=== PATIENT | male | born 1935 | race Caucasian/White ===

== ENCOUNTER → 2016-08-16 | Outpatient (CLI) | payer OTHER ==
[~2016-08-16] MED LIST: ACET-1311 PO; ASPCH81X PO; BISA10SU38 PR; CARV6.25 PO; CHOL2000 PO; CLON1TAB3 PO; CYAN100020 PO; DIVA125T18 PO; FURO80TA63 PO; HYDR-5688 PO; LISI-789 PO; MAGN400T6 PO; MAGNSUS5 PO; POTA-327 PO; PRAV20TA PO; PREG1CAP36 PO; QUET5TAB PO; RANI150T3 PO; RXC/5 PO; RXC5 PO; SENN-65 PO; SODIENE PR; SRQ25 PO; TAMS0.4C38 PO
[2016-08-16 14:20] LABS: URINE APPEARANCE CLEAR (CLEAR); URINE BILIRUBIN NEG (NEG); URINE COLOR YELLOW; URINE NITRITE POS (NEG); URINE PH 7.5 (4.5-7.5); URINE SPECIFIC GRAVITY 1.005 (1.000-1.030); UROBILINOGEN NEG (NEG)
[2016-08-16 14:26] LABS: MANUAL MICROSCOPIC REQUIRED? NO; REVIEW REQ? NO
== END ==
LOC: C.LABCC 12:50
PROVIDERS: ATTEND Internal Medicine
DX: R41.82 Altered mental status, unspecified (principal)

== ENCOUNTER → 2016-08-17 | Outpatient (CLI) | payer OTHER ==
[2016-08-17 08:44] LABS: BASO % 0.5 %; BASO ABS # 0.03 K/uL (0-0.2); COMPLETE YES; EOS % 5.4 %; HEMATOCRIT 38.8 % (42-52); IG% 0.3 %; LYMPH % 22.9 %; LYMPH ABS # 1.47 K/uL (1.2-3.4); MEAN CELL VOLUME 87.4 fL (80-100); MEAN CORPUSCULAR HEMOGLOBIN 27.9 pg (25-34); MEAN PLATELET VOLUME 10.6 fL (7.4-10.4); MONO % 12.6 %; NEUT % 58.3 %; PLATELET COUNT 212 K/uL (130-400); RED BLOOD COUNT 4.44 M/uL (4.7-6.1); WHITE BLOOD COUNT 6.43 K/uL (4.8-10.8)
[2016-08-17 08:53] LABS: BLOOD UREA NITROGEN 14 mg/dl (7-18); BUN/CREATININE RATIO 13.6 (10-20); CALCIUM 8.7 mg/dl (8.5-10.1); CARBON DIOXIDE 33 mmol/L (21-32); CHLORIDE 101 mmol/L (98-107); GLUCOSE 100 mg/dl (70-99); POTASSIUM 4.3 mmol/L (3.5-5.1); SODIUM 141 mmol/L (136-145)
== END ==
LOC: C.LABCC 08:14
PROVIDERS: ATTEND Internal Medicine
DX: R53.83 Other fatigue (principal)

== ENCOUNTER → 2016-10-07 | Outpatient (CLI) | payer OTHER ==
[2016-10-07 08:55] LABS: ESTIMATED AVERAGE GLUCOSE 128 mg/dl; HA1C FLAG Normal (Normal)
== END ==
LOC: C.LABCC 08:12
PROVIDERS: ATTEND Internal Medicine
DX: E11.9 Type 2 diabetes mellitus without complications (principal)

== ENCOUNTER → 2016-11-11 | Outpatient (CLI) | payer OTHER ==
[2016-11-12 01:43] LABS: URINE APPEARANCE CLEAR (CLEAR); URINE BILIRUBIN NEG (NEG); URINE COLOR YELLOW; URINE NITRITE POS (NEG); URINE SPECIFIC GRAVITY 1.013 (1.000-1.030); UROBILINOGEN NEG (NEG)
[2016-11-12 01:48] LABS: MANUAL MICROSCOPIC REQUIRED? YES; REVIEW REQ? NO
[2016-11-12 02:00] LABS: URINE BACTERIA 2+ (NEG); URINE RBC 0-4 /hpf (0-4)
== END ==
LOC: C.LABCC 09:46
PROVIDERS: ATTEND Internal Medicine
DX: R45.1 Restlessness and agitation (principal); F41.9 Anxiety disorder, unspecified; R35.0 Frequency of micturition

== ENCOUNTER → 2016-12-08 | Outpatient (CLI) | payer OTHER ==
[2016-12-09 01:36] LABS: URINE APPEARANCE CLEAR (CLEAR); URINE BILIRUBIN NEG (NEG); URINE COLOR YELLOW; URINE NITRITE NEG (NEG); URINE SPECIFIC GRAVITY 1.013 (1.000-1.030); UROBILINOGEN NEG (NEG)
[2016-12-09 01:41] LABS: MANUAL MICROSCOPIC REQUIRED? NO; REVIEW REQ? NO
== END ==
LOC: C.LABCC 11:33
PROVIDERS: ATTEND Internal Medicine
DX: R41.82 Altered mental status, unspecified (principal); R45.1 Restlessness and agitation

== ENCOUNTER → 2017-01-07 | Outpatient (CLI) | payer OTHER ==
[2017-01-07 12:13] LABS: ESTIMATED AVERAGE GLUCOSE 131 mg/dl; HA1C FLAG Normal (Normal)
== END ==
LOC: C.LABCC 07:57
PROVIDERS: ATTEND Internal Medicine
DX: E11.9 Type 2 diabetes mellitus without complications (principal)

== ENCOUNTER → 2017-02-17 | Outpatient (CLI) | payer OTHER ==
--- NOTE | 2017-02-17 10:22 | DIAGNOSTIC IMAGING REPORT ---
(RENAL)RETROPERITON COMP HISTORY: December ejection fraction N39.0 UTI (urinary tract infection)C67.9 Bladder cancer latex COMPARISON: None. FINDINGS: Right kidney: Maximum dimension 10.6 cm. No evidence for hydronephrosis. Normal corticomedullary differentiation and cortical thickness. Left kidney: Maximum dimension 9.9 cm. No evidence for hydronephrosis. Normal corticomedullary differentiation and cortical thickness. Bladder: Subtle bladder wall thickening posterior bladder wall. Given patient history cystoscopy is suggested IMPRESSION: Normal renal ultrasound. Possible subtle bladder wall thickening posteriorly. Cystoscopy is suggested as follow-up. The above report was generated using voice recognition software. It may contain grammatical, syntax or spelling errors. Electronically signed by: Augustine Smalls M.D. 02/17/2017 10:21 AM Dictated Date/Time: 02/17/2017 10:19 AM
== END ==
LOC: C.ULTR 09:31
PROVIDERS: ATTEND Urology
DX: C67.9 Malignant neoplasm of bladder, unspecified (principal); N39.0 Urinary tract infection, site not specified; R93.49 Abnormal radiologic findings on diagnostic imaging of other urinary organs

== ENCOUNTER → 2017-07-18 | Outpatient (CLI) | payer OTHER ==
[2017-07-18 11:43] LABS: BASO % 0.4 %; BASO ABS # 0.03 K/uL (0-0.2); EOS % 4.4 %; EOS ABS # 0.34 K/uL (0-0.5); HEMATOCRIT 37.1 % (42-52); HEMOGLOBIN 11.8 g/dL (14.0-18.0); IG# 0.02 K/uL (0.00-0.02); MEAN CELL VOLUME 86.9 fL (80-100); MEAN CORPUSCULAR HEMOGLOBIN 27.6 pg (25-34); MEAN CORPUSCULAR HGB CONC 31.8 g/dl (32-36); MEAN PLATELET VOLUME 10.9 fL (7.4-10.4); MONO % 9.6 %; MONO ABS # 0.74 K/uL (0.11-0.59); NEUT % 72.3 %; NEUT ABS # 5.58 K/uL (1.4-6.5); PLATELET COUNT 265 K/uL (130-400); RED CELL DISTRIBUTION WIDTH CV 15.3 % (11.5-14.5); RED CELL DISTRIBUTION WIDTH SD 48.9 fL (36.4-46.3); WHITE BLOOD COUNT 7.71 K/uL (4.8-10.8)
[2017-07-18 11:59] LABS: HEMOGLOBIN A1C 6.3 % (4.5-5.6)
[2017-07-18 12:01] LABS: ALBUMIN 3.1 gm/dl (3.4-5.0); ALT/SGPT 20 U/L (12-78); AST/SGOT 12 U/L (15-37); BLOOD UREA NITROGEN 12 mg/dl (7-18); CALCIUM 8.9 mg/dl (8.5-10.1); CARBON DIOXIDE 34 mmol/L (21-32); CREATININE 1.07 mg/dl (0.60-1.40); GLUCOSE 95 mg/dl (70-99); SODIUM 136 mmol/L (136-145)
[2017-07-18 12:14] LABS: ALKALINE PHOSPHATASE 111 U/L (45-117); TOTAL PROTEIN 7.4 gm/dl (6.4-8.2)
== END ==
LOC: C.LABCC 09:59
PROVIDERS: ATTEND Internal Medicine
DX: F01.50 Vascular dementia, unspecified severity, without behavioral disturbance, psychotic disturbance, mood disturbance, and anxiety (principal); E11.9 Type 2 diabetes mellitus without complications; N18.9 Chronic kidney disease, unspecified

== ENCOUNTER → 2017-09-14 | Outpatient (CLI) | payer OTHER ==
[2017-09-14 11:06] LABS: BLOOD UREA NITROGEN 17 mg/dl (7-18); CALCIUM 8.6 mg/dl (8.5-10.1); CARBON DIOXIDE 36 mmol/L (21-32); CREATININE 1.17 mg/dl (0.60-1.40); GLUCOSE 91 mg/dl (70-99); POTASSIUM 4.1 mmol/L (3.5-5.1); SODIUM 139 mmol/L (136-145)
== END ==
LOC: C.LABCC 09:51
PROVIDERS: ATTEND Internal Medicine
DX: I10 Essential (primary) hypertension (principal)

== ENCOUNTER 2017-10-07 14:02 | Emergency (ER) | payer OTHER ==
[~2017-10-07] VITALS: Ht 175.3 cm; Wt 120.9 kg
[2017-10-07 14:11] VITALS: TEMP 37.1; Ht 175.3 cm; Wt 120.9 kg
[2017-10-07 14:22] VITALS: O2SAT 92
--- NOTE | 2017-10-07 14:32 | EMERGENCY ROOM VISIT NOTE ---
History Report prepared by [place]: Carmelina Victoria Under the Supervision of: Dr. Yobany Saul M.D. 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 He states that for the past couple of years he has had persistent chest pain that feels like "hiccups." He reports that he came in to the ED today because he coughed up blood and white mucus and was having worsening chest pain and SOB. He denies having chest pain when he does not cough. He notes he has had a fever and SOB but denies any nausea, vomiting, or urinary symptoms. He wears oxygen at night. The patient lives at [facility] and notes he lives alone. 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 A total of 10 systems reviewed and were otherwise negative. Past Medical & Surgical Medical Problems: (1) ambulatory dysfunction (2) Chr Ischemic Hrt Dis Nec (3) Coronary artery disease (4) Diabetic autonomic neuropathy (5) Diastolic heart failure (6) Hypertensive disorder, systemic arterial (7) Irritable Bowel Syndrome (8) Peripheral vascular disease (9) Psychosis Nos (10) Systolic heart failure Old medical records were reviewed. Nurse's notes were reviewed and I agree with. Family History Family history omitted secondary to the patient's age Social History Smoking Status: Never Smoker Alcohol Use: none Drug Use: none Marital Status: Housing Status: assisted living Occupation Status: retired Current/Historical Medications Scheduled Alum & Mag Hydrox-Simethicone (Antacid), 10 ML PO Q4H Aspirin (Aspirin Chewable), 81 MG PO QAM Azithromycin (Zithromax Z-Jose), 0 PO UD Cyanocobalamin (Vitamin B12), 1,000 MCG PO DAILY Furosemide (Lasix), 80 MG PO QAM Furosemide (Lasix), 40 MG PO QPM Hydrocodone/Acetaminophen 5MG/325MG ([place] 5MG/325MG), 1 TAB PO BID Ipratropium-Albuterol (Duoneb), 1 TREATMENT INH Q4H Lisinopril (Zestril), 2.5 MG PO DAILY Lorazepam (Ativan), 0.5 MG PO BID Magnesium Oxide (Mag-Ox), 400 MG PO BID Melatonin (Melatonin), 1 TAB PO HS Paroxetine (Paxil), 40 MG PO HS Potassium Chloride (Micro-K Ext Rel), 6 TAB PO BID Pravastatin (Pravachol ), 20 MG PO DAILY Pregabalin (Lyrica), 50 MG PO BID Quetiapine Fumarate Xr (Seroquel Xr), 200 MG PO TID Senna/Docusate Sod (Senokot S), 1 TAB PO BID Tamsulosin Hcl (Flomax), 0.8 MG PO QPM Scheduled PRN Acetaminophen (Tylenol), 650 MG PO Q8 PRN for Fever Bisacodyl (Dulcolax), 1 SUPP MI UD PRN for Constipation Magnesium Hydroxide (Milk Of Magnesia), 30 ML PO DAILY PRN for Constipation Sodium Phosphate/Biphosphate (Fleet Enema), 1 EA MI UD PRN for Constipation Allergies Coded Allergies: Lactose (Unverified Adverse Reaction, Mild, LACTOSE INTOLERANCE-DIARRHEA, 10/07/17) Physical Exam Vital Signs Date Time Temp Pulse Resp B/P (MAP) Pulse Ox O2 Delivery O2 Flow Rate FiO2 10/07/17 17:55 18 94/65 97 10/07/17 16:05 100 18 139/87 97 Room Air 10/07/17 14:22 92 Room Air 10/07/17 14:11 97 10/07/17 14:11 37.1 92 24 139/87 92 Room Air Physical Exam General: Non-ill appearing older male wearing supplemental oxygen in no acute distress. HEENT: Normal cephalic atraumatic. Pupils are equal round and reactive to light. Extraocular movements are intact. Oropharynx is pink with moist mucous membranes. No swelling of the mouth lips or tongue. Neck: Supple with a midline trachea. No meningeal signs or stiffness, no JVD or bruits. No Stridor. Chest: Coarse breath sounds in the bases No wheezes or rhonchi. No increased work of breathing. Heart: regular rate and rhythm. Abdomen: Soft nontender, nondistended without rebound guarding or rigidity. Extremities: No cyanosis or clubbing. Lower extremity has froilan wrap with mild edema Spine/Back. Non tender to palpation. No CVA tenderness Skin: Good turgor without rashes. Neurologic exam: Cranial nerves two through 12 are intact. Motor and sensation are intact and symmetrical throughout. Medical Decision & Procedures ER Provider Diagnostic Interpretation: Radiology results as stated below per my review and radiologist interpretation: SINGLE VIEW CHEST CLINICAL HISTORY: Atypical chest pain. FINDINGS: An AP, portable, upright chest radiograph is compared to study dated 03/12/2014. The examination is degraded by portable technique and patient rotation. The heart is enlarged and there is atherosclerotic calcification of the thoracic aorta. The pulmonary vasculature is noncongested. Chronic interstitial thickening is similar to previous. There is mild elevation of the left hemidiaphragm with bibasilar atelectasis. No airspace consolidation or large pleural effusion is identified. No pneumothorax is seen. The skeletal structures are osteopenic. The bony thorax is grossly intact. IMPRESSION: Cardiomegaly with no acute cardiopulmonary abnormality. Electronically signed by: Kyree Ho M.D. 10/07/2017 2:46 PM Dictated Date/Time: 10/07/2017 2:43 PM Laboratory Results 10/07/17 13:40 Red Blood Count 5.10, Mean Corpuscular Volume 85.3, Mean Corpuscular Hemoglobin 27.5, Mean Corpuscular Hemoglobin Concent 32.2, Mean Platelet Volume 10.7, Neutrophils (%) (Auto) 73.3, Lymphocytes (%) (Auto) 13.5, Monocytes (%) (Auto) 8.3, Eosinophils (%) (Auto) 4.2, Basophils (%) (Auto) 0.2, Neutrophils # (Auto) 6.77, Lymphocytes # (Auto) 1.25, Monocytes # (Auto) 0.77, Eosinophils # (Auto) 0.39, Basophils # (Auto) 0.02 10/07/17 13:40 Test 10/07/17 13:40 10/07/17 15:44 10/07/17 15:59 10/07/17 16:00 White Blood Count 9.25 K/uL (4.8-10.8) Red Blood Count 5.10 M/uL (4.7-6.1) Hemoglobin 14.0 g/dL (14.0-18.0) Hematocrit 43.5 % (42-52) Mean Corpuscular Volume 85.3 fL (80-100) Mean Corpuscular Hemoglobin 27.5 pg (25-34) Mean Corpuscular Hemoglobin Concent 32.2 g/dl (32-36) Platelet Count 249 K/uL (130-400) Mean Platelet Volume 10.7 fL (7.4-10.4) Neutrophils (%) (Auto) 73.3 % Lymphocytes (%) (Auto) 13.5 % Monocytes (%) (Auto) 8.3 % Eosinophils (%) (Auto) 4.2 % Basophils (%) (Auto) 0.2 % Neutrophils # (Auto) 6.77 K/uL (1.4-6.5) Lymphocytes # (Auto) 1.25 K/uL (1.2-3.4) Monocytes # (Auto) 0.77 K/uL (0.11-0.59) Eosinophils # (Auto) 0.39 K/uL (0-0.5) Basophils # (Auto) 0.02 K/uL (0-0.2) RDW Standard Deviation 49.8 fL (36.4-46.3) RDW Coefficient of Variation 15.9 % (11.5-14.5) Immature Granulocyte % (Auto) 0.5 % Immature Granulocyte # (Auto) 0.05 K/uL (0.00-0.02) Prothrombin Time 10.7 SECONDS (9.0-12.0) Prothromb Time International Ratio 1.0 (0.9-1.1) Activated Partial Thromboplast Time 26.6 SECONDS (21.0-31.0) Partial Thromboplastin Ratio 1.0 Anion Gap 5.0 mmol/L (3-11) Est Creatinine Clear Calc Drug Dose 63.6 ml/min Estimated GFR () 66.5 Estimated GFR (Non- 57.3 BUN/Creatinine Ratio 19.2 (10-20) Calcium Level 9.1 mg/dl (8.5-10.1) Total Bilirubin 0.6 mg/dl (0.2-1) Direct Bilirubin 0.2 mg/dl (0-0.2) Aspartate Amino Transf (AST/SGOT) 20 U/L (15-37) Alanine Aminotransferase (ALT/SGPT) 51 U/L (12-78) Alkaline Phosphatase 92 U/L (45-117) Total Creatine Kinase 28 U/L (39-308) Creatine Kinase MB 0.6 ng/ml (0.5-3.6) Creatine Kinase MB Ratio 2.1 (0-3.0) Pro-B-Type Natriuretic Peptide 58 pg/ml (0-1800) Total Protein 7.7 gm/dl (6.4-8.2) Albumin 3.5 gm/dl (3.4-5.0) Lipase 126 U/L (73-393) Influenza Type A Antigen Neg for Influ A (NEG) Influenza Type B Antigen Neg for Influ B (NEG) Bedside Troponin I < 0.030 ng/ml (0-0.045) Bedside Lactic Acid Venous 1.29 mmol/L (0.90-1.70) Laboratory studies as stated above per my review. Medications Administered Medications (Trade) Dose Ordered Sig/Kaley Route Start Time Stop Time Status Last Admin Dose Admin Azithromycin (Zithromax Tab) 500 mg NOW ONCE PO 10/07/17 16:45 10/07/17 16:46 DC 10/07/17 16:45 500 MG ECG Per My Interpretation Indication: chest pain Rate (beats per minute): 95 Rhythm: normal sinus Findings: no acute ischemic change, no ectopy Comparison ECG Date: November 19, 2014 Change: no significant change Change: Repeat EKG: normal sinus rhythm, rate of 97, no acute ischemia, no significant change from EKG done earlier today. ED Course 1423: Past medical records reviewed. The patient was evaluated in room A12, and a complete history and physical examination were performed. 1456: I checked on the patient at this time and he appears comfortable but is complaining about coughing. 1551: I checked on the patient at this time and he is resting comfortable and is trying to eat something if he wants. 1634: Upon reevaluation, the patient is agreeable and content. I discussed the results and treatment plan with him. He verbalized agreement of the treatment plan. The patient was discharged home. 1645: Zithromax Tab 500 mg PO Medical Decision Differential diagnosis: Etiologies such as CHF, pneumonia, cardiac disease, sepsis, electrolyte or metabolic abnormality, PE as well as others were entertained. This patient comes in as described above. He was placed in room A12. he is having chest pain shortness of breath but actually sounds like he is more coughing. He says he may have had a fever. Appears in no distress at present. His initial EKG did not show any ischemic changes. IV access established multiple blood testing was obtained including blood cultures. Chest x-ray was obtained. He does have a history of CHF is on Lasix. He has had no increased lower extremity edema or weight gain that he knows of. A troponin was negative. A second EKG was unremarkable and a second troponin was unremarkable. Chest x-ray was clear. He has no evidence of CHF. He does have chronic leg edema which is unchanged. Although he may have had chest pain it seems more with coughing and his complaints are more coughing at the is more of a bronchitis. He feels good would like to go back to the senior care, I will start him on azithromycin. The first dose was given here as well as prescription Z-Jose. He was encouraged to return if: worsening of symptoms, any new problems or concerns Medication Reconcilliation Current Medication List: was personally reviewed by me Blood Pressure Screening Patient's blood pressure: Normal blood pressure Blood pressure disposition: Did not require urgent referral Impression Primary Impression: Bronchitis Additional Impressions: Cough Precordial chest pain Scribe Attestation The scribe's documentation has been prepared under my direction and personally reviewed by me in its entirety. I confirm that the note above accurately reflects all work, treatment, procedures, and medical decision making performed by me. Departure Information Dispostion Home / Self-Care Prescriptions Azithromycin (ZITHROMAX Z-JOSE) 250 Mg Tab 0 PO UD, #1 PKT Prov: Yobany Saul M.D. 10/07/17 Referrals [facility]air[facility]ol[facility] (PCP) Forms Call Back Authorization, HOME CARE DOCUMENTATION FORM, IMPORTANT VISIT INFORMATION Patient Instructions My [facility] Additional Instructions Rest. Use azithromycin Z-Jose as directed antibiotic Return if: Worsening of symptoms, increasing pain, shortness of breath, any new problems or concerns Follow-up with your doctor Tuesday for recheck Problem Qualifiers
[2017-10-07] MEDS ORDERED: PARO1TAB29 PO (14:43)
[2017-10-07] MEDS ORDERED: MELA3TAB PO (14:43)
[2017-10-07] MEDS ORDERED: LORA-741 PO (14:43)
[2017-10-07] MEDS ORDERED: ALUM1SUS PO (14:43)
[2017-10-07] MEDS ORDERED: IPRASOL4 INH (14:43)
[2017-10-07] MEDS ORDERED: QUET200T2 PO (14:43)
[2017-10-07] MEDS ORDERED: POTA10CA28 PO (14:43)
[2017-10-07] MEDS ORDERED: MOML PO (14:43)
[2017-10-07] MEDS ORDERED: LYR/50 PO (14:43)
--- NOTE | 2017-10-07 14:48 | DIAGNOSTIC IMAGING REPORT ---
SINGLE VIEW CHEST CLINICAL HISTORY: Atypical chest pain. FINDINGS: An AP, portable, upright chest radiograph is compared to study dated 03/12/2014. The examination is degraded by portable technique and patient rotation. The heart is enlarged and there is atherosclerotic calcification of the thoracic aorta. The pulmonary vasculature is noncongested. Chronic interstitial thickening is similar to previous. There is mild elevation of the left hemidiaphragm with bibasilar atelectasis. No airspace consolidation or large pleural effusion is identified. No pneumothorax is seen. The skeletal structures are osteopenic. The bony thorax is grossly intact. IMPRESSION: Cardiomegaly with no acute cardiopulmonary abnormality. Electronically signed by: Kyree Ho M.D. 10/07/2017 2:46 PM Dictated Date/Time: 10/07/2017 2:43 PM
[2017-10-07 15:04] LABS: BASO % 0.2 %; BASO ABS # 0.02 K/uL (0-0.2); EOS % 4.2 %; EOS ABS # 0.39 K/uL (0-0.5); HEMATOCRIT 43.5 % (42-52); IG# 0.05 K/uL (0.00-0.02); LYMPH % 13.5 %; LYMPH ABS # 1.25 K/uL (1.2-3.4); MEAN CELL VOLUME 85.3 fL (80-100); MEAN CORPUSCULAR HEMOGLOBIN 27.5 pg (25-34); MEAN CORPUSCULAR HGB CONC 32.2 g/dl (32-36); MEAN PLATELET VOLUME 10.7 fL (7.4-10.4); MONO % 8.3 %; MONO ABS # 0.77 K/uL (0.11-0.59); NEUT % 73.3 %; NEUT ABS # 6.77 K/uL (1.4-6.5); PLATELET COUNT 249 K/uL (130-400); RED CELL DISTRIBUTION WIDTH CV 15.9 % (11.5-14.5); RED CELL DISTRIBUTION WIDTH SD 49.8 fL (36.4-46.3); WHITE BLOOD COUNT 9.25 K/uL (4.8-10.8)
[2017-10-07 15:11] LABS: ALBUMIN 3.5 gm/dl (3.4-5.0); CALCIUM 9.1 mg/dl (8.5-10.1); CREATININE 1.19 mg/dl (0.60-1.40); POTASSIUM 4.6 mmol/L (3.5-5.1)
[2017-10-07 15:16] LABS: CKMB 0.6 ng/ml (0.5-3.6); PTT PATIENT 26.6 SECONDS (21.0-31.0); TOTAL PROTEIN 7.7 gm/dl (6.4-8.2)
[2017-10-07 16:05] VITALS: PULSE 100
[2017-10-07 16:24] LABS: INFLUENZA B ANTIGEN Neg for Influ B (NEG)
[2017-10-07] MEDS ORDERED: AZITTAB PO (16:37)
[2017-10-07] MEDS ORDERED: AZITHROMYCIN 250 MG TAB PO ONE (16:45)
[2017-10-07 17:55] VITALS: BP 94/65; O2SAT 97
== END 2017-10-07 17:58 | disposition home or self-care (01) ==
LOC: EDBD 14:02 → C.EDA 14:05
DX: J40 Bronchitis, not specified as acute or chronic (principal); R05 Cough; R07.2 Precordial pain; I25.10 Atherosclerotic heart disease of native coronary artery without angina pectoris; R26.2 Difficulty in walking, not elsewhere classified; K58.9 Irritable bowel syndrome, unspecified; I73.9 Peripheral vascular disease, unspecified; F29 Unspecified psychosis not due to a substance or known physiological condition; I50.40 Unspecified combined systolic (congestive) and diastolic (congestive) heart failure; Z79.82 Long term (current) use of aspirin; Z79.899 Other long term (current) drug therapy; Z91.011 Allergy to milk products

== ENCOUNTER → 2017-11-10 | Outpatient (CLI) | payer OTHER ==
[~2017-11-10] MED LIST changes: +ALUM1SUS PO; -CARV6.25 PO; -CHOL2000 PO; -CLON1TAB3 PO; -DIVA125T18 PO; +IPRASOL4 INH; +LORA-741 PO; +LYR/50 PO; -MAGNSUS5 PO; +MELA3TAB PO; +MOML PO; +PARO1TAB29 PO; -POTA-327 PO; +POTA10CA28 PO; -PREG1CAP36 PO; +QUET200T2 PO; -QUET5TAB PO; -RANI150T3 PO; -RXC/5 PO; -RXC5 PO; -SRQ25 PO
[2017-11-10 08:43] LABS: BASO % 0.5 %; BASO ABS # 0.03 K/uL (0-0.2); EOS % 3.7 %; EOS ABS # 0.21 K/uL (0-0.5); HEMATOCRIT 35.9 % (42-52); HEMOGLOBIN 11.2 g/dL (14.0-18.0); IG# 0.01 K/uL (0.00-0.02); LYMPH ABS # 1.29 K/uL (1.2-3.4); MEAN CELL VOLUME 87.3 fL (80-100); MEAN CORPUSCULAR HEMOGLOBIN 27.3 pg (25-34); MEAN CORPUSCULAR HGB CONC 31.2 g/dl (32-36); MEAN PLATELET VOLUME 10.4 fL (7.4-10.4); MONO % 10.1 %; MONO ABS # 0.57 K/uL (0.11-0.59); NEUT % 62.5 %; NEUT ABS # 3.51 K/uL (1.4-6.5); PLATELET COUNT 218 K/uL (130-400); RED CELL DISTRIBUTION WIDTH CV 15.9 % (11.5-14.5); RED CELL DISTRIBUTION WIDTH SD 51.1 fL (36.4-46.3); WHITE BLOOD COUNT 5.62 K/uL (4.8-10.8)
[2017-11-10 09:05] LABS: ALBUMIN 2.9 gm/dl (3.4-5.0); ALKALINE PHOSPHATASE 97 U/L (45-117); ALT/SGPT 14 U/L (12-78); AST/SGOT 10 U/L (15-37); TOTAL PROTEIN 6.5 gm/dl (6.4-8.2)
--- NOTE | 2017-11-17 15:03 | CODING QUERY NO DIAGNOSIS ---
TREATMENT RENDERED WITHOUT A DIAGNOSIS 37 To promote full compliance with coding requirements relating to patient care, physician participation is requested in all cases of switch technician uncertainty. Please assist us with providing a diagnosis/symptom for the test(s) below: A diagnosis/symptom was not documented on your Order. A valid diagnosis/symptom is required to bill all insurances. Please remember that we are unable to code a diagnosis of rule out, probable, possible, questionable, or suspected. DOS 11/10/17 Tests that require a diagnosis: * CBC W/DIFF DIAGNOSIS: Provider Signature: Date: Thank you Yesica Trotter Health Information Management Once completed, please kindly fax back to [phone] For questions please call [phone]
== END ==
LOC: C.LABCC 08:16
PROVIDERS: ATTEND Internal Medicine
DX: I10 Essential (primary) hypertension (principal)

== ENCOUNTER → 2017-11-15 | Outpatient (CLI) | payer OTHER ==
[2017-11-15 10:16] LABS: HEMOGLOBIN A1C 6.2 % (4.5-5.6)
== END ==
LOC: C.LABCC 07:49
PROVIDERS: ATTEND Internal Medicine
DX: E78.5 Hyperlipidemia, unspecified (principal); E11.9 Type 2 diabetes mellitus without complications

== ENCOUNTER → 2018-02-19 | Outpatient (CLI) | payer OTHER ==
[~2018-02-19] MED LIST changes: +IPRA-64 INH; -IPRASOL4 INH
== END ==
LOC: C.LABSPEC 04:05
PROVIDERS: ATTEND Internal Medicine
DX: R29.6 Repeated falls (principal)

== ENCOUNTER → 2018-02-24 | Outpatient (CLI) | payer OTHER ==
[2018-02-24 08:14] LABS: BASO % 0.4 %; BASO ABS # 0.02 K/uL (0-0.2); EOS % 5.5 %; EOS ABS # 0.31 K/uL (0-0.5); HEMATOCRIT 36.5 % (42-52); HEMOGLOBIN 11.3 g/dL (14.0-18.0); IG# 0.01 K/uL (0.00-0.02); LYMPH % 20.1 %; LYMPH ABS # 1.13 K/uL (1.2-3.4); MEAN CELL VOLUME 88.6 fL (80-100); MEAN CORPUSCULAR HEMOGLOBIN 27.4 pg (25-34); MEAN PLATELET VOLUME 10.9 fL (7.4-10.4); MONO % 12.6 %; MONO ABS # 0.71 K/uL (0.11-0.59); NEUT % 61.2 %; NEUT ABS # 3.45 K/uL (1.4-6.5); PLATELET COUNT 208 K/uL (130-400); RED CELL DISTRIBUTION WIDTH CV 15.6 % (11.5-14.5); RED CELL DISTRIBUTION WIDTH SD 50.4 fL (36.4-46.3); WHITE BLOOD COUNT 5.63 K/uL (4.8-10.8)
[2018-02-24 08:24] LABS: BLOOD UREA NITROGEN 19 mg/dl (7-18); CARBON DIOXIDE 32 mmol/L (21-32); CREATININE 1.24 mg/dl (0.60-1.40); GLUCOSE 89 mg/dl (70-99); POTASSIUM 4.6 mmol/L (3.5-5.1); SODIUM 138 mmol/L (136-145)
== END ==
LOC: C.LABCC 07:44
PROVIDERS: ATTEND Internal Medicine
DX: N39.0 Urinary tract infection, site not specified (principal)